=== PATIENT | male | born 1955 | race Caucasian/White ===

== ENCOUNTER 2021-04-20 13:07 | Observation (INO) | payer MEDICARE, OTHER ==
[~2021-04-20] VITALS: Ht 180.3 cm; Wt 86.0 kg
--- NOTE | 2021-04-20 13:13 | NUR ---
TO ROOM FO RTRIAGE
--- NOTE | 2021-04-20 15:02 | NUR ---
RESTING QUIETLY, AT BEDSIDE
[2021-04-20 15:15] LABS: URINE BILIRUBIN - DIPSTICK NEGATIVE (NEGATIVE); URINE BLOOD DIPSTICK NEGATIVE (NEGATIVE); URINE COLOR YELLOW; URINE GLUCOSE - DIPSTICK NEGATIVE (NEGATIVE); URINE KETONE NEGATIVE (NEGATIVE); URINE LEUK ESTERASE NEGATIVE (NEGATIVE); URINE PROTEIN - DIPSTICK NEGATIVE (NEG-TRACE); URINE UROBILINOGEN - DIPSTICK 0.2 E.U./dL (0.2)
[2021-04-20 15:16] LABS: HEMATOCRIT 35.9 % (39.0-50.0); HEMOGLOBIN 12.4 g/dl (14.0-18.0); IMMATURE GRANULOCYTES 4.4 % (0.0-5.0); MEAN CELL VOLUME 87.6 fL CALC (80.0-100.0); MEAN CORPUSCULAR HGB 30.2 pG CALC (26.0-32.0); MEAN CORPUSCULAR HGB CONC 34.5 g/dL CAL (32.0-36.0); NEUT# 2.02 thou/uL (1.82-7.42); RED BLOOD COUNT 4.1 mill/uL (4.70-6.10); RED CELL DISTRI WIDTH 12.5 % (11.5-15.5); URINE NITRITE - DIPSTICK NEGATIVE (Negative)
[2021-04-20 15:29] LABS: ALKALINE PHOSPHATASE 68 u/l (38-126); ANION GAP 12 (6-22 (CALC)); BILIRUBIN, TOTAL 0.5 mg/dL (0.0-1.4); BUN 32 mg/dL (8-23); BUN/CREATININE RATIO 20 (12-20 (CALC)); CARBON DIOXIDE 27 mmol/l (22-30); CHLORIDE 102 mmol/l (95-108); CREATININE 1.6 mg/dL (0.7-1.3); GFR 43 ML/MIN (>=60 (CALC)); GFR FOR AFR.AMER. 52 ML/MIN (>=60 (CALC)); LIPASE 59 u/l (23-300); MAGNESIUM 1.6 mg/dL (1.6-2.3); POTASSIUM 4.7 mmol/l (3.5-5.1); SGOT/AST 47 u/l (19-48); SODIUM 136 mmol/l (137-146); TOTAL PROTEIN 6.9 g/dL (6.3-8.2)
[2021-04-20 15:58] LABS: TSH, 3RD GENERATION 0.62 uIU/mL (0.47 - 4.68)
--- NOTE | 2021-04-20 16:37 | NUR ---
DR BORJA AT BEDSIDE
--- NOTE | 2021-04-20 17:00 | NUR ---
PATIENT RESTING, SPOUSE AT BEDSIDE, AWAITING RESULTS. WCTM.
--- NOTE | 2021-04-20 18:00 | NUR ---
DR SOTO AT BEDSIDE
--- NOTE | 2021-04-20 18:05 | NUR ---
DINNER TRAY PROVIDED.
--- NOTE | 2021-04-20 18:16 | NUR ---
URINARY CATHETER PLACEMENT DISCUSSED WITH PATIENT, PATIENT VRBALIZES UNDERSTANDING FOR NEED.
[2021-04-20] MEDS ORDERED: PROGRAF5 MG PO (18:35)
[2021-04-20] MEDS ORDERED: MYCOPHENOLIC A180 MG PO (18:36)
[2021-04-20] MEDS ORDERED: ASPIRIN81 MG PO (18:37)
[2021-04-20] MEDS ORDERED: PRAVASTATIN SOD20 MG PO (18:37)
[2021-04-20] MEDS ORDERED: LISINOPRIL10 MG PO (18:38)
[2021-04-20] MEDS ORDERED: TAMSULOSIN HCL0.4 MG PO (18:38)
[2021-04-20] MEDS ORDERED: PROTONIX20 M1 PO (18:38)
[2021-04-20] MEDS ORDERED: TRESIBA100 UNIT/M SC (18:39)
[2021-04-20] MEDS ORDERED: TRULICITY1.5 MG/0.5 SC (18:40)
[2021-04-20] MEDS ORDERED: NOVOLO1 SC ×2 (18:41)
[2021-04-20] MEDS ORDERED: NEXIUM20 M1 PO (18:42)
--- NOTE | 2021-04-20 19:00 | NUR ---
16FR PEREZ URINARY CATHETER PLACED UNDER STERILE PROCEDURE. URINE SENT TO LAB. PATIENT TOLERATED WELL.
--- NOTE | 2021-04-20 19:09 | NUR ---
REPORT CALLED TO RN
[2021-04-20 19:49] VITALS: BP 157/88
--- NOTE | 2021-04-20 22:20 | NUR ---
PATIENT WAS BROUGHT TO THE FLOOR VIA STRETCHER IN STABLE CONDITION WITH RN. NO ACUTE DISTRESS OBSERVED. ASSESSMENT COMPLETED AND CHARTED. PEREZ CATHETER IN PLACE, SECURED AND DRAINING YELLOW URINE TO GRAVITY. BED IN LOW POSITION. CALL LIGHT WITHIN REACH.
--- NOTE | 2021-04-21 00:35 | NUR ---
PATIENT C/O GENERALIZED PAIN AND HEADACHE 04/05. ALSO REQUESTED A SLEEPING PILL. NOTIFIED MD. NEW ORDERS RECEIVED. TYLENOL AND SONATA GIVEN.
[2021-04-21 03:30] VITALS: BP 122/75
--- NOTE | 2021-04-21 04:01 | NUR ---
PATIENT C/O HEADACHE. TYLENOL NOT DUE. PILLOW READJUSTED. REPORTS FEELS BETTER. PATIENT REPORTS WANTING A LOZENGE FOR HIS THROAT. PATIENT HAD A PIECE OF HARD CANDY. BED IN LOW POSITION. PEREZ CATHETER DRAINING TO GRAVITY. IVF INFUSING. TELE IN PLACE. BED IN LOW POSITION. CALL LIGHT WITHIN REACH.
[2021-04-21 05:26] LABS: HEMATOCRIT 33.4 % (39.0-50.0); HEMOGLOBIN 11.5 g/dl (14.0-18.0); MEAN CELL VOLUME 88.4 fL CALC (80.0-100.0); MEAN CORPUSCULAR HGB 30.4 pG CALC (26.0-32.0); MEAN CORPUSCULAR HGB CONC 34.4 g/dL CAL (32.0-36.0); RED BLOOD COUNT 3.78 mill/uL (4.70-6.10); RED CELL DISTRI WIDTH 12.3 % (11.5-15.5)
[2021-04-21 05:35] LABS: ANION GAP 11 (6-22 (CALC)); BUN 22 mg/dL (8-23); BUN/CREATININE RATIO 16 (12-20 (CALC)); CARBON DIOXIDE 25 mmol/l (22-30); CHLORIDE 107 mmol/l (95-108); CREATININE 1.4 mg/dL (0.7-1.3); GFR 51 ML/MIN (>=60 (CALC)); GFR FOR AFR.AMER. > 60 ML/MIN (>=60 (CALC)); POTASSIUM 4.3 mmol/l (3.5-5.1); SODIUM 138 mmol/l (137-146)
--- NOTE | 2021-04-21 07:30 | NUR ---
PT note Patient is screened for PT intervention and no needs are identified at this time
[2021-04-21 08:00] VITALS: BP 122/78
--- NOTE | 2021-04-21 08:00 | NUR ---
RESTING IN THE BED AXOX3, IV INFUSING, PEREZ TO BEDSIDE DRAINAGE . DENIES PAIN AT THIS TIME. STATES HE IS FEELING BETTER TODAY. ENCOURAGED TO ASK QUESTIONS. REPOSITIONED FOR COMOFRT, SIDE RAILS UP CALL LIGHT IN REACH, BED LOCKED IN LOW POSITION, WILL CONTINUE TO MONIOTR THE PATIENT.
--- NOTE | 2021-04-21 10:00 | NUR ---
PROVIDER IN WITH THE PATIENT AT THIS TIME.
--- NOTE | 2021-04-21 11:26 | NUR ---
PEREZ D/C PER ORDER. 800 CC CLEAR URINE OUT.
--- NOTE | 2021-04-21 12:00 | NUR ---
ENCOURAGED TO THE PT DO DRINK FLUIDS. NO DISTRESS NOTED AT THIS TIME. WILL CONTINUE TO MONITOR.
--- NOTE | 2021-04-21 15:01 | NUR ---
PT STATES HE VOIDED FOUR TIMES TODAY.
[2021-04-21 15:22] VITALS: BP 136/81
[2021-04-21] MEDS ORDERED: FINASTERIDE5 MG PO (15:41)
[2021-04-21] MEDS ORDERED: ZOFRAN4 MG/TAB PO (15:41)
--- NOTE | 2021-04-21 15:47 | NUR ---
OUT OF THE BED UP AMB IN THE ROOM. CONNIE WELL. NO DISTRESS NOTED AT THIS TIME.
--- NOTE | 2021-04-21 15:57 | NUR ---
PT VOIDED 200CC OF YELLOW URINE IN THE URINAL. INSTRUCTED PT HE CAN GO HOME. IV D/CD.
== END 2021-04-21 16:54 | disposition home or self-care (01) ==
LOC: ED 13:07 → ED-I 18:00 → ED 18:42 → MS2 18:43
PROVIDERS: Emergency Medicine; ADMIT Hospitalist; ATTEND Hospitalist
PROC: 0T9B70Z Drainage of Bladder with Drainage Device, Via Natural or Artificial Opening (ICD-10-PCS; principal; 2021-04-20)
DX: N40.1 Benign prostatic hyperplasia with lower urinary tract symptoms (principal); R33.8 Other retention of urine; R11.0 Nausea; N17.9 Acute kidney failure, unspecified; I10 Essential (primary) hypertension; E11.9 Type 2 diabetes mellitus without complications; E78.5 Hyperlipidemia, unspecified; K21.9 Gastro-esophageal reflux disease without esophagitis; Z94.1 Heart transplant status; Z79.899 Other long term (current) drug therapy; Z79.4 Long term (current) use of insulin; Z20.822 Contact with and (suspected) exposure to COVID-19
CPT/HCPCS: G0378

== ENCOUNTER 2022-08-19 10:35 | Emergency (ER) | payer MEDICARE, OTHER ==
[~2022-08-19] VITALS: Ht 180.3 cm; Wt 86.3 kg
[2022-08-19] VITALS (8 sets, daily range): BP systolic 145–156; BP diastolic 77–94
[~2022-08-19 10:35] MED LIST: ASPIRIN81 MG PO; FINASTERIDE5 MG PO; LISINOPRIL10 MG PO; MYCOPHENOLIC A180 MG PO; NEXIUM20 M1 PO; NOVOLO1 SC; PRAVASTATIN SOD20 MG PO; PROGRAF5 MG PO; PROTONIX20 M1 PO; TAMSULOSIN HCL0.4 MG PO; TRESIBA100 UNIT/M SC; TRULICITY1.5 MG/0.5 SC; ZOFRAN4 MG/TAB PO
[2022-08-19 11:16] LABS: HEMOGLOBIN 12.4 g/dl (14.0-18.0); IMMATURE GRANULOCYTES 0.7 % (0.0-5.0); MEAN CELL VOLUME 74.1 fL CALC (80.0-100.0); MEAN CORPUSCULAR HGB 25.5 pG CALC (26.0-32.0); MEAN CORPUSCULAR HGB CONC 34.4 g/dL CAL (32.0-36.0); NEUT# 1.65 thou/uL (1.82-7.42); RED BLOOD COUNT 4.86 mill/uL (4.70-6.10); RED CELL DISTRI WIDTH 14.4 % (11.5-15.5)
[2022-08-19 11:28] LABS: ALBUMIN 3.8 g/dL (3.2-5.0); ALKALINE PHOSPHATASE 81 u/l (38-126); ANION GAP 12 (6-22 (CALC)); BILIRUBIN, TOTAL 0.5 mg/dL (0.0-1.4); BUN 22 mg/dL (8-23); BUN/CREATININE RATIO 17 (12-20 (CALC)); CARBON DIOXIDE 25 mmol/l (22-30); CHLORIDE 101 mmol/l (95-108); CREATININE 1.3 mg/dL (0.7-1.3); GFR FOR AFR.AMER. > 60 ML/MIN (>=60 (CALC)); GFR OTHER RACES 55 ML/MIN (>=60 (CALC)); LIPASE 93 u/l (23-300); POTASSIUM 3.7 mmol/l (3.5-5.1); SGOT/AST 41 u/l (19-48); SODIUM 134 mmol/l (137-146); TOTAL PROTEIN 6.4 g/dL (6.3-8.2)
[2022-08-19] MEDS ORDERED: ZITHROMAX Z-PA250 MG PO ×2 (12:37→13:17)
[2022-08-19] MEDS ORDERED: ZOFRAN4 MG/TAB PO (13:18)
== END 2022-08-19 13:16 | disposition home or self-care (01) ==
LOC: ED 10:35
PROVIDERS: Family Medicine
DX: U07.1 COVID-19 (principal); R19.7 Diarrhea, unspecified; R05.9 Cough, unspecified; R52 Pain, unspecified; I10 Essential (primary) hypertension; E11.9 Type 2 diabetes mellitus without complications; Z94.1 Heart transplant status; Z79.4 Long term (current) use of insulin; Z79.60 Long term (current) use of unspecified immunomodulators and immunosuppressants

== ENCOUNTER 2022-08-21 11:29 | Emergency (ER) | payer MEDICARE, OTHER ==
[2022-08-21] VITALS (21 sets, daily range): BP systolic 128–167; BP diastolic 84–107
[~2022-08-21] VITALS: Ht 180.3 cm; Wt 86.4 kg
[~2022-08-21 11:29] MED LIST changes: +ZITHROMAX Z-PA250 MG PO
[2022-08-21 11:56] LABS: IMMATURE GRANULOCYTES 0.3 % (0.0-5.0); MEAN CELL VOLUME 74.9 fL CALC (80.0-100.0); MEAN CORPUSCULAR HGB 25.3 pG CALC (26.0-32.0); MEAN CORPUSCULAR HGB CONC 33.8 g/dL CAL (32.0-36.0); NEUT# 7.28 thou/uL (1.82-7.42); RED BLOOD COUNT 6.29 mill/uL (4.70-6.10); RED CELL DISTRI WIDTH 16.1 % (11.5-15.5)
[2022-08-21 11:57] LABS: HEMATOCRIT 47.1 % (39.0-50.0); HEMOGLOBIN 15.9 g/dl (14.0-18.0)
[2022-08-21 12:12] LABS: ALBUMIN 4.4 g/dL (3.2-5.0); BUN 18 mg/dL (8-23); BUN/CREATININE RATIO 12 (12-20 (CALC)); CHLORIDE 98 mmol/l (95-108); CREATININE 1.5 mg/dL (0.7-1.3); GFR FOR AFR.AMER. 56 ML/MIN (>=60 (CALC)); GFR OTHER RACES 46 ML/MIN (>=60 (CALC)); SODIUM 132 mmol/l (137-146); TOTAL PROTEIN 7.6 g/dL (6.3-8.2)
[2022-08-21 12:14] LABS: ALKALINE PHOSPHATASE 137 u/l (38-126); ANION GAP 23 (6-22 (CALC)); BILIRUBIN, TOTAL 1.2 mg/dL (0.0-1.4); CARBON DIOXIDE 16 mmol/l (22-30); POTASSIUM 4.8 mmol/l (3.5-5.1); SGOT/AST 178 u/l (19-48)
[2022-08-21 15:15] LABS: URINE BILIRUBIN - DIPSTICK NEGATIVE (NEGATIVE); URINE BLOOD DIPSTICK SMALL (NEGATIVE); URINE COLOR YELLOW; URINE GLUCOSE - DIPSTICK 500 mg/dL (NEGATIVE); URINE KETONE 15 mg/dL (NEGATIVE); URINE LEUK ESTERASE NEGATIVE (NEGATIVE); URINE NITRITE - DIPSTICK NEGATIVE (Negative); URINE PROTEIN - DIPSTICK 100 mg/dL (NEG-TRACE); URINE SPECIFIC GRAVITY 1.025; URINE UROBILINOGEN - DIPSTICK 0.2 E.U./dL (0.2)
[2022-08-21 15:20] LABS: URINE RBC 0-2 RBC/hpf (0-5)
[2022-08-21 15:21] LABS: URINE COARSE GRANULAR CAST RARE lpf
== END 2022-08-21 19:59 | disposition short-term general hospital (02) ==
LOC: ED 11:29 → ED-I 14:44 → ED 19:59
PROVIDERS: Family Medicine
PROC: 02HV33Z Insertion of Infusion Device into Superior Vena Cava, Percutaneous Approach (ICD-10-PCS; principal; 2022-08-21)
PROC: XW043E5 Introduction of Remdesivir Anti-infective into Central Vein, Percutaneous Approach, New Technology Group 5 (ICD-10-PCS; 2022-08-21)
DX: A41.89 Other specified sepsis (principal); U07.1 COVID-19; E11.9 Type 2 diabetes mellitus without complications; Z94.1 Heart transplant status; Z79.4 Long term (current) use of insulin